=== PATIENT | female | born 1990 | race Caucasian/White ===

== ENCOUNTER 2017-07-06 18:14 | Inpatient (IN) | payer BC ==
[2017-07-06] MEDS ORDERED: Carboprost Tromethamine 250 MCG/1 ML Amp IM PRN (18:38)
[2017-07-06] MEDS ORDERED: Lidocaine 1% 30 ML SDV INJECT PRN (18:38)
[2017-07-06] MEDS ORDERED: Tranexamic Acid 1,000 MG in Sodium Chloride 0.9% 100 ML IV PRN (18:38)
[2017-07-06] MEDS ORDERED: Methylergonovine 0.2 MG/1 ML Amp IM PRN (18:38)
[2017-07-06] MEDS ORDERED: Lactated Ringers 500 ML IV ONE (18:38)
[2017-07-06] MEDS ORDERED: Acetaminophen 325 MG Tab PO PRN (18:38)
[2017-07-06] MEDS ORDERED: Misoprostol 400 MCG (4 X 100 MCG TAB) RECTAL PRN (18:38)
[2017-07-06] MEDS ORDERED: Sodium Chloride 0.9% 10 ML Syringe FLUSH PRN (18:38)
[2017-07-06] MEDS ORDERED: Ondansetron 4 MG/2 ML SDV IV PRN (18:38)
[2017-07-06] MEDS ORDERED: Oxytocin/Normal Saline 30 UNIT/500 ML BAG IV SCH (18:45)
[2017-07-06] MEDS: Lactated Ringers 1,000 ML IV SCH (19:20)
[2017-07-06] MEDS ORDERED: Nalbuphine 20 MG/1 ML Amp IM ONE (23:51)
--- NOTE | 2017-07-07 01:27 | HP ---
CHIEF COMPLAINT: Spontaneous rupture of membranes with occasional contractions. HISTORY OF PRESENT ILLNESS: A 27-year-old, 1, para 0, currently at 37 weeks 6 days' gestation based on last menstrual period, presents to Labor and Delivery reporting spontaneous rupture of membranes at 1600 hours today with vaginal leaking, consistent of clear fluid. She has had occasional contractions from that time until her time at presentation to Labor and Delivery at approximately 1830 hours. She states the contraction pains are more of a low back pain. Still leakage of fluid, states that she has changed her pads twice today. No vaginal bleeding. No upper abdominal pain. No headaches. No vision changes. No bleeding or spotting. She states that she has some heartburn-type pain. The patient has gestational diabetes, failing her 1-hour glucose tolerance test with a blood sugar of 221. She has been managing her GDM with glyburide. movement has been good overall today. HISTORY: The patient has had consistent care with Dr. Amarjit Casper. Blood type is A negative. She received her RhoGAM at 28 weeks. She is rubella immune. GBS negative. Syphilis serology nonreactive. Hepatitis B, HIV, TSH, hepatitis C, and wet prep were all negative. Impaired glucose tolerance with 1-hour glucose tolerance test of 221, gestational diabetes, managed with glyburide. PAST MEDICAL HISTORY: Negative except for this and its gestational diabetes. PAST SURGICAL HISTORY: Perry teeth extraction. FAMILY HISTORY: Father is adopted, no known history on his side. Father is reported to be alive and well. Mother reported to be alive and well, negative medical history on her side. The patient has a half brother (same father), who lived for 1 month with defects of no eyes and no voicebox. Subsequent pregnancies were without defect, genetic workup was inconclusive. SOCIAL HISTORY: The patient is to , Jori. They live in [place], [place]. 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 CURRENT MEDICATIONS: 1. Glyburide with 2.5 mg in the morning, 5 mg at noon, 5 mg in the evening. 2. vitamins. 3. Tylenol as needed. EXPOSURE MEDICATIONS: Glyburide. ALLERGIES: Seasonal. REVIEW OF SYSTEMS: No headache, blurry vision, chest pain, shortness of breath, fever, chills, nausea, vomiting, diarrhea, or constipation. The patient has mild swelling in the legs and heartburn. No skin rash. No new symptoms reported. OBJECTIVE: Vital signs: Admission vitals currently pending. HEENT: Atraumatic, normocephalic. Mucosal membranes moist. Pupils PERRLA. Neck: Supple. No adenopathy. Heart: Regular without any murmur. Lungs: Clear to auscultation bilaterally. Abdomen: Gravid. Nontender. Bowel sounds auscultated on superior quadrants. Baseline heart rate in the 130s with accelerations noted. See Dr. Amarjit Casper's note Cervix: Cervix is 3 cm dilated, 75% effaced, with ruptured membranes. LABORATORY DATA: Current admission laboratory data pending. ASSESSMENT: 1. Intrauterine at 37 and 6/7 weeks' gestation, based on last menstrual period and ultrasound at 9-1/2 weeks. 2. Premature rupture of membranes 3. Gestational diabetes, managed with glyburide, with admission glucose of 76. 4. Group B streptococcus negative, blood type A negative with RhoGAM admitted at 28 weeks, and rubella immune. 5. Infertility, treated with Clomid and provera for one cycle prior to 6. 1, para 0. PLAN: At this time, the patient has been admitted to Labor and Delivery for established labor. Anticipate that this will be a vaginal delivery. We will use Pitocin to augment her contractions. The patient is requesting intrathecal for pain management when the time comes, but she is agreeable to any form of pain control at this point. The patient understands that things may change and she may need alternative delivery such as section. Her and her 's questions have been answered. seen and agreed-ROXI. [facility] /[id number] ELIANE
[2017-07-07] MEDS: Lactated Ringers 1,000 ML IV SCH ×4 (01:29→18:10)
[2017-07-07] MEDS ORDERED: fentaNYL 100 MCG/2 ML SDV ONE (01:31)
[2017-07-07] MEDS ORDERED: Bupivacaine 0.75%/D5W 2 ML Amp ONE (01:31)
[2017-07-07] MEDS ORDERED: EPINEPHrine 1 MG/ML SDV ONE (01:32)
--- NOTE | 2017-07-07 02:34 | PCM.PRNOTE ---
- Free Text/Narrative Note: Requested to provide analgesia to full term patient in severe pain. Upon entering the room, patient is supine in bed complaining of severe abdominal/ pelvic pain and discomfort. Procedure was discussed with patient including adverse outcomes and expectations. Pt consented to analgesia, SAB/IT. Pt placed into a sitting position. Landmarks for SAB/IT were identified and marked. Hands were washed and appropriate PPE was applied. Back was prepped with betadine x3. A sterile, transparent, fenestrated drape was applied. Excess betadine was removed. Using 3 mL of a 1% lidocaine solution, a skin wheel was placed at the L3/L4 interspace. A 24 ga (4 inch) Pencan spinal needle was inserted until positive for CSF. Negative for heme or paresthesias. Injected fentanyl 20 mcg, sufentanil 10 mcg, and 9.75 mg of a 0.75% bupivacaine solution with an epi wash. Pt was placed left lateral position for approximately 20 minutes. There were zero complications or adverse outcomes. Will continue to monitor.
[2017-07-07] MEDS ORDERED: Tranexamic Acid 1,000 MG in Sodium Chloride 0.9% 100 ML IV PRN (04:17)
[2017-07-07] MEDS ORDERED: ceFAZolin 2 GM in Premix Bag 1 BAG IV ONE (04:17)
[2017-07-07] MEDS ORDERED: Acetaminophen/oxyCODONE 325-5 MG Tab PO PRN (04:17)
[2017-07-07] MEDS ORDERED: Naloxone 2 MG/2 ML Syringe IVPUSH PRN (04:17)
[2017-07-07] MEDS ORDERED: Citric Acid/Sodium Citrate Solution 30 ML Cup PO ONE (04:17)
[2017-07-07] MEDS ORDERED: diphenhydrAMINE 50 MG/ML SDV IVPUSH PRN (04:17)
[2017-07-07] MEDS ORDERED: ePHEDrine 50 MG/ML SDV IVPUSH PRN (04:17)
[2017-07-07] MEDS ORDERED: Oxytocin/Normal Saline 30 UNIT/500 ML BAG IV SCH (04:30)
[2017-07-07] MEDS ORDERED: Lactated Ringers 1,000 ML IV SCH (04:30)
[2017-07-07] MEDS: Morphine PF 30 MG/30 ML PCA Vial IV PRN ×2 (06:41→12:04)
--- NOTE | 2017-07-07 09:52 | OR ---
DATE: 07/07/2017 PREOPERATIVE DIAGNOSES: 1. Intrauterine 38 weeks, confirmed by 9 and 2/7 week ultrasound. 2. Excessive vaginal bleeding. 3. Nonreassuring status. 4. Premature rupture of membranes requiring initial Pitocin augmentation. 5. Gestational diabetes mellitus, requiring glyburide during the . Glucose-76 upon admit and controlled. 6. Group B Streptococcus negative. 7. Rh negative. 8. Infertility requiring Clomid and Provera x1 cycle for this . 9. G1, P0. POSTOPERATIVE DIAGNOSES: 1. Intrauterine 38 weeks, confirmed by 9 and 2/7 week ultrasound- delivered. 2. Excessive vaginal bleeding. 3. Nonreassuring status. 4. Premature rupture of membranes requiring initial Pitocin augmentation. 5. Gestational diabetes mellitus, requiring glyburide during the . Glucose-76 upon admit and controlled. 6. Group B Streptococcus negative. 7. Rh negative. 8. Infertility requiring Clomid and Provera x1 cycle for this . 9. G1, P0. 10.Placental abruption, diagnosed with old blood clot behind the placenta. PROCEDURE PERFORMED: On 07/06/2017, NST and Pitocin augmentation. On 07/07/2017, continued Pitocin augmentation followed by IUPC, and then subsequent primary low transverse with 2-layer uterine closure. CHIEF METEOROLOGIST: 1. Claudia Estevez MD. 2. Nallely Hodge MS-III. ANESTHESIA: General due to recent intrathecal prior to the procedure. ESTIMATED BLOOD LOSS: 700 mL. IV FLUIDS: 1100 mL. URINE OUTPUT: 200 mL and yellow. START: 0504 hours. UTERINE INCISION: 0505 hours. DELIVERY: 0506 hours. STOPPED: 0531 hours. FINDINGS: Male. scores and weight pending. DESCRIPTION OF PROCEDURE IN DETAIL: After proper consent was obtained, the patient was brought to the operating room, where Gordon was placed in preop under sterile conditions and abdomen was prepped and draped in normal sterile fashion with patient placed in supine position with left lateral tilt. General anesthesia was then introduced. Skin incision was then made over lower abdomen in transverse Pfannenstiel-type fashion. This was carried down to the fascia and scored in the midline. Subcutaneous tissue was raked laterally with blunt technique and fascial incision was extended superiorly and inferiorly and laterally with blunt technique. Rectus muscles were in the midline with blunt technique. Abdominal cavity was then entered in blunt technique. Incision was extended superiorly and inferiorly with blunt technique. Sen O large retractor was then introduced and used. Vesicouterine peritoneum was identified and incised in transverse fashion with Metzenbaum scissors, and bladder flap was made digitally. A curvilinear incision was made on the lower uterine segment at 0505 hours. Uterus was entered sharply. Clear fluid returned. The uterine incision was then extended in transverse fashion using blunt technique. vertex was then delivered up through the pelvis and into the incision, followed by rest of the infant with some difficulty with shoulders being delivered in transverse presentation/fashion. Rest of the infant was delivered. Mouth and nares were suctioned. Cord was doubly clamped and cut and the infant was brought over to team for resuscitation. Then, approximately 10 mL of cord blood was obtained for labs. Placenta was then delivered with gentle cord traction and fundal massage and was noted to have approximately a golf ball size clot behind the placenta with some stringy old blood clot noted with clearing of the uterine cavity. Uterine cavity was then cleared of all blood clots and debris with lap sponge. Cortes clamps were used to grasp the uterine incision, and this was closed in a running locked fashion and tied at lateral margins with 1-0 Vicryl. Second imbricating layer was applied using 1-0 Vicryl and tied at lateral margins. Persistent bleeding was noted on left lateral portion of the incision. A figure- of-nine stitch was placed over this area and hemostasis was reassured. First inspection of the uterine incision revealed hemostasis. Sen O retractor was then removed and paracolic gutters were then cleared of all blood clots and debris with lap sponge. Anterior cul-de-sac was then irrigated copiously, and all blood clots and debris removed. Second and final inspection of the uterine incision and anterior cul-de-sac revealed hemostasis. Rectus muscles were then reapproximated in midline with [id number] stitch using 1-0 Vicryl. Subfascial tissue was found to be hemostatic. Fascia was closed in a running fashion and tied at lateral margin with 0 looped PDS. Subcutaneous tissue was irrigated copiously. Hemostasis reassured. Skin was reapproximated with medium donna. Sterile Aquacel dressing was applied. Uterine fundus was firm and massaged at the conclusion of the case -1 below umbilicus. No immediate complications were noted. Sponge, lap, needle counts were correct. The patient received 2 g Ancef preoperatively, Pitocin per protocol, and will receive Toradol at the conclusion of the case for pain control. During uterine incision repair due to the history of the abruption, tranexamic acid was called for and given 1 g. Please see MACARONI MAKER notes. Mother and are currently stable time of dictation. MODL /[id number]
--- NOTE | 2017-07-07 09:58 | PN ---
DATE: 07/07/2017 SUBJECTIVE: The patient is comfortable, status post intrathecal. She did receive some Nubain earlier. Pitocin was stopped after the intrathecal with continued monitoring of the fetus. OBJECTIVE: Last blood pressure 122/55. heart tones in 135 to 140 range. Acceleration noted with vaginal exam. Tocometer was unable to read contractions with patient lying on her left side with oxygen on. Vaginal exam reveals her to be 7 cm, 90% effaced, 0 to +1 station vertex suspected with some bloody show. IUPC placed after discussion with the patient. ASSESSMENT: Intrauterine now at 38 weeks, confirmed by 9 and 2/7 week ultrasound with premature rupture membranes, requiring Pitocin augmentation, with gestational diabetes mellitus complicating this , requiring glyburide with glucose of 76 upon admit, and GBS negative, and Rh negative, G1, P0, treated for infertility with Clomid and Provera x1 cycle prior to becoming . PLAN: Pitocin has been has been stopped. We will follow heart tones closely. IUPC has been placed to determine strength of contractions. May consider resuming Pitocin once heart tones are more reassuring. Otherwise, we will continue to follow closely at this point in time. [facility] /[id number]
--- NOTE | 2017-07-07 10:28 | PN ---
DATE: 07/07/2017 SUBJECTIVE: The patient is feeling comfortable status post intrathecal. Concerns per nurse with variable decelerations and status are listed. OBJECTIVE: heart tones right now are in the 140s to 150s baseline. I can see 1 acceleration noted with vaginal exam. Tocometer reveals contractions every 1.5 to 3 minutes. Pitocin has been stopped due to heart tone concerns. Vaginal exam reveals her to be 6 to 7 cm, 75% to 85% effaced, 0 station, vertex suspected, and essentially unchanged from evaluation approximately 2 hours prior. ASSESSMENT AND PLAN: Intrauterine at 38 weeks, confirmed by 9 and 2/7 weeks' ultrasound, complicated by premature rupture of membranes. Initially receiving Pitocin augmentation that had to be stopped after intrathecal due to concerns with heart tones with the patient having gestational diabetes mellitus, requiring glyburide with glucose controlled at 76 upon admit in a GBS negative, Rh negative, G1, P0. The patient now has concerns with nonreassuring status with what appears to be a category 2 strip that has persisted despite using oxygen, IV fluids, repositioning. I did discuss with the patient concerns with the heart tones as well as her lack of cervical change, and due to the concerns with status, I have recommend that we proceed with primary low transverse . I did discuss with her and her male partner risks, benefits, alternatives, and complications of including, but not limited to, infection, bleeding, damage to internal organs such as bowel, bladder, tubes, uterus, ovaries, sometimes fetus rarely needing a blood transfusion or further surgery, and rarer maternal or . She understands and agrees and wishes to proceed. Verbal and written consent were obtained. Questions were answered. We will proceed to the operating room as soon as crew is ready and available. [facility] /[id number]
--- NOTE | 2017-07-07 11:01 | PN ---
DATE: 07/07/2017 SUBJECTIVE: The patient is comfortable, status post intrathecal. Has no questions, getting ready to be wheeled/transferred down to the OR. OBJECTIVE: Vaginal exam done, essentially unchanged, around 7 cm, unchanged in terms of effacement, 0 station, vertex suspected, but increased vaginal bleeding is noted. ASSESSMENT/PLAN: Increased vaginal bleeding with no cervical change with history of nonreassuring status. We will proceed to the OR and follow clinically and closely. Of note, there was an acceleration around the time of vaginal exam. The patient's questions have been answered. We are proceeding to the OR at the current time of dictation. [facility] /[id number]
--- NOTE | 2017-07-07 11:07 | OBOUT ---
DATE: 07/06/2017 DATE AND TIME OF NST: Date: 07/06/2017. Time: 1826 hours to 1846 hours. REASON FOR NST: 1. Intrauterine 37 and 6/7 weeks, confirmed with 9 and 2/7 week ultrasound. 2. Premature rupture of membranes. 3. Gestational diabetes mellitus, requiring glyburide, glucose 76 upon admit. 4. Group B streptococcus negative. 5. Rh negative, RhoGAM given appropriately in the . 6. Infertility, requiring Clomid and Provera x1 cycle for this . 7. G1, P0. NST INTERPRETATION: During this time period, heart tone baseline is approximately 145 and there are at least two 15 x 15 beats per minute accelerations, making this strip reactive. . It is also noted to be reassuring. Tocometer reveals potential of 3 to 4 contractions, none felt by patient. Blood pressure 127/72, heart rate 98. The patient feels afebrile. Vaginal exam reveals her to be 3.5 cm, 75% effaced, -1 station, vertex suspected. ASSESSMENT AND PLAN: 1. Nonstress test, reactive and reassuring. 2. Tocometer with contractions. PLAN: Spontaneous rupture of membranes around 4 p.m., or earlier, approximately 3 hours prior to this NST and admission to the hospital, we will start Pitocin augmentation. In addition, we will continue to follow clinically and closely. Blood sugar is under control at this point in time. We will stop her glyburide at this point in time and we will continue to follow clinically and closely. Carbohydrate appropriate diet has been ordered. In addition, history and physical done in conjunction with Nallely Hodge MS-III, for this records were called for, reviewed, and supplemented by patient's history, as well as review of systems fully reviewed and felt to be only contributory for her documentations. Plan as above, we will start Pitocin when we can and follow clinically and closely. [facility] /[id number]
[2017-07-07] MEDS: Ketorolac 30 MG/ML SDV IVPUSH SCH ×3 (11:47→23:32)
[2017-07-07] MEDS: Simethicone 80 MG Tab.Chew PO SCH ×4 (11:48→23:33)
[2017-07-07] MEDS: Docusate Sodium 100 MG Cap PO PRN (23:33)
[2017-07-08] MEDS: Lactated Ringers 1,000 ML IV SCH (01:23)
[2017-07-08] MEDS: Ibuprofen 800 MG Tab PO PRN ×2 (07:42→17:28)
[2017-07-08] MEDS: Docusate Sodium 100 MG Cap PO PRN ×2 (07:42→21:32)
[2017-07-08] MEDS: Acetaminophen/oxyCODONE 325-5 MG Tab PO PRN ×4 (07:43→21:33)
[2017-07-08] MEDS: Simethicone 80 MG Tab.Chew PO SCH ×4 (08:37→21:32)
--- NOTE | 2017-07-08 11:32 | PN ---
DATE: 07/08/2017 SUBJECTIVE: The patient is sitting at the edge of the bed in her room, she is "getting the strength to go to the bathroom." The patient has been able to get up to the bathroom with help the night before. She attributes her pain to the catheter. She describes this pain as "more of a burning achy pain." The Aquacel dressing has not shown an increase in the bleeding and shadowing on the right side. She has no fever, no chills. Denies headache, nausea, back pain, or weakness in her legs. Denies abdominal pain. She is tolerating a normal diet. Passing gas, has not had a bowel movement. without complications. OBJECTIVE: Vital Signs: Temperature 98.4, pulse is 79, blood pressure 120/67, respiratory rate of 16, 100% oxygen saturation on room air. HEENT: Atraumatic, normocephalic. Globes appear normal. Neck: Supple. Trachea midline. Lungs: Clear to auscultation bilaterally. No crackles or wheezing. Heart: Regular rate and rhythm. No murmur. Abdomen: Uterus is firm at the umbilicus. There is an Aquacel dressing over her lower abdominal incision. Due to patient's discomfort and pannus while in sitting position, did not visualize the full Aquacel dressing. Extremities: Mild edema in legs, nonpitting. Pulses palpable in the periphery, radial and dorsalis pedis. LABORATORY DATA: Hemoglobin 9.9, platelets 288. ASSESSMENT: 1. Postop day #1 of primary section of a 38 week 0 day gestation confirmed by 9-2/7 weeks' ultrasound. 2. Placental abruption diagnosed with old blood clot behind the placenta. 3. Gestational diabetes mellitus requiring glyburide. 4. Rh negative with Rh positive infant. 5. Infertility requiring Clomid and Provera x1 cycle for this . 6. 1, para 1. PLAN: Continue hospitalization for recovery from section. We will be starting iron and vitamins to help improve patient's hemoglobin. Questions answered about the schedule for discharge and followup visits. seen and agreed with med student-ROXI MODL /[id number] ELIANE
[2017-07-08] MEDS ORDERED: Ketorolac 30 MG/ML SDV IVPUSH ONE (15:55)
[2017-07-08] MEDS ORDERED: Dexamethasone 4 MG/ML SDV IV ONE (15:55)
[2017-07-08] MEDS ORDERED: Succinylcholine 200 MG/10 ML MDV IV ONE (15:55)
[2017-07-08] MEDS ORDERED: Ondansetron 4 MG/2 ML SDV IV ONE (15:55)
[2017-07-08] MEDS ORDERED: Tranexamic Acid 1,000 MG in Sodium Chloride 0.9% 100 ML IV ONE (15:55)
[2017-07-08] MEDS ORDERED: Rocuronium 50 MG/5 ML Vial IV ONE (15:55)
[2017-07-08] MEDS ORDERED: Propofol 200 MG/20 ML SDV IV ONE (15:55)
[2017-07-08] MEDS ORDERED: Glycopyrrolate 0.2 MG/ML 2 ML SDV IV ONE (15:55)
[2017-07-08] MEDS ORDERED: Neostigmine Methylsulfate 10 MG/10 ML MDV IV ONE (15:55)
[2017-07-08] MEDS ORDERED: EPINEPHrine 1 MG/ML SDV ONE (16:00)
[2017-07-08] MEDS ORDERED: Bupivacaine 0.75%/D5W 2 ML Amp ONE (16:00)
[2017-07-08] MEDS ORDERED: fentaNYL 100 MCG/2 ML SDV ITHECAL ONE (16:00)
[2017-07-08] MEDS ORDERED: fentaNYL 100 MCG/2 ML SDV IV ONE (16:24)
[2017-07-09] MEDS: Acetaminophen/oxyCODONE 325-5 MG Tab PO PRN ×6 (01:12→22:17)
[2017-07-09] MEDS: Ibuprofen 800 MG Tab PO PRN ×3 (01:13→17:59)
[2017-07-09] MEDS: Docusate Sodium 100 MG Cap PO PRN ×2 (09:48→22:18)
[2017-07-09] MEDS: Prenatal Multivitamin with Calcium/Folic Acid/Iron Tab PO SCH (09:48)
[2017-07-09] MEDS: Simethicone 80 MG Tab.Chew PO SCH ×4 (09:48→22:16)
[2017-07-09] MEDS: Ferrous Sulfate 325 MG Tab PO SCH (09:48)
--- NOTE | 2017-07-09 11:15 | PN ---
DATE: 07/09/2017 Postoperative day #2. SUBJECTIVE: The patient is tolerating p.o., ambulating, urinating, and passing flatus. Notes improvement in her swelling from yesterday as well as pain and feels much better. OBJECTIVE: Vital Signs: Temperature 98.7, heart rate 61, blood pressure 116/67, and respiratory rate 16. Lungs: Clear to auscultation bilaterally. Heart: S1 and S2. Regular rate and rhythm. Pelvic: Firm uterus, +1 above umbilicus. Extremities: Trace to 1+ pitting edema to mid tibia. No calf pain. RhoGAM was given yesterday as baby's blood type was positive. LABORATORY DATA: Hemoglobin yesterday was 9.9 with platelets of 288. ASSESSMENT AND PLAN: 1. Postoperative day #2, status post primary low transverse section with 2-layer uterine closure. The patient appears to be doing well. We will continue to follow clinically and closely. 2. Anemia of acute blood loss. Hemoglobin dropping down to the level as described as above. Iron has been started. We will recheck a CBC tomorrow and follow clinically and closely. Possible discharge tomorrow. [facility] /[id number]
[2017-07-10] MEDS: Ibuprofen 800 MG Tab PO PRN (02:10)
[2017-07-10] MEDS: Acetaminophen/oxyCODONE 325-5 MG Tab PO PRN ×2 (02:11→08:41)
[2017-07-10] MEDS: Prenatal Multivitamin with Calcium/Folic Acid/Iron Tab PO SCH (08:38)
[2017-07-10] MEDS: Docusate Sodium 100 MG Cap PO PRN (08:39)
[2017-07-10] MEDS: Ferrous Sulfate 325 MG Tab PO SCH (08:39)
[2017-07-10] MEDS: Simethicone 80 MG Tab.Chew PO SCH (08:43)
--- NOTE | 2017-07-13 09:11 | DISCH ---
Patient admitted on 07/06/2017 DOS: 07/10/2017 ADMIT DIAGNOSES: 1. Intrauterine at 37 and 6/7 weeks, confirmed with 9 and 2/7 week ultrasound. 2. Premature rupture of membranes. 3. Gestational diabetes mellitus, requiring glyburide with glucose-76 upon admit. 4. Group B streptococcus negative. 5. Rh negative. RhoGAM given appropriately. 6. Infertility, requiring Clomid and Provera x1 cycle for this . 7. 1, para 0. POSTOPERATIVE DIAGNOSES: 1. Intrauterine at 38 weeks, confirmed with 9 and 2/7 week ultrasound, delivered via primary low transverse section with 2 layer uterine closure. 2. Premature rupture of membranes. 3. Gestational diabetes mellitus, requiring glyburide with glucose-76 upon admit. 4. Group B streptococcus negative. 5. Rh negative. RhoGAM given appropriately. 6. Infertility, requiring Clomid and Provera x1 cycle for this . 7. 1, para 0. 8. Excessive vaginal bleeding. 9. Abruption noted with delivery. PROCEDURE PERFORMED: On 07/06 NST and Pitocin and then on 07/07 IUPC, Pitocin, and then subsequent primary low transverse with 2 layer uterine closure. Procedure performed by Amarjit Casper MD. HISTORY OF PRESENT ILLNESS: Please see H and P. SUMMARY OF HOSPITAL COURSE: The patient was admitted on the above date with the above diagnoses and underwent Pitocin augmentation as she had premature rupture of membranes. She also required an IUPC to monitor contractions and then subsequently had some increased vaginal bleeding with concerns with nonreassuring status. She was taken to the operating room, and as intrathecal was performed before the , general anesthesia was used. This was with an EBL of 700 mL with findings consistent with an abruption, yielding a male with scores of 5 and 9, weighing 6 pounds 15 ounces. Please see operative note for further details. Postoperative day #1 and #2, please see progress note. Postoperative day #3, date of discharge, the patient tolerating p.o., ambulating, urinating, passing flatus, and requesting discharge. PHYSICAL EXAMINATION: Vital Signs: Last set of vitals are updated and listed in the chart. Temperature 98.8, heart rate 79, blood pressure 118/59, respiratory rate 16. Lungs: Clear to auscultation bilaterally. Heart: S1 and S2. Regular rate and rhythm. Abdomen: Firm uterus at -1 below umbilicus. Aquacel dressing has minimal tracing on the right, unchanged from yesterday. Extremities: 1+ pitting edema to the proximal tibia. No calf pain. LABORATORY DATA: White cell count 8.1, hemoglobin 10, platelets 340. CONDITION ON DISCHARGE COMPARED TO CONDITION ON ADMISSION: Improved. RETURN INSTRUCTIONS: 1. Diet as tolerated. 2. Activity: No lifting more than 20 pounds. No sit-ups, straining, and pelvic rest for the next 6 weeks with immediate return to fertility discussed with the patient. 3. Reasons to return or go to the emergency room were discussed with the patient in detail including, but not limited to, temperature greater than 100.4, foul-smelling discharge, red hot tender breasts, or increased vaginal bleeding. DISCHARGE MEDICATIONS: 1. [id number] ibuprofen or Tylenol for pain. 2. Percocet 5/325 mg one to two q.6 hours p.r.n., #30, no refills. Discussed the use of this medications, adverse and wanted effects, as well as precautions with driving. FOLLOWUP: Follow up on 07/13/2017, for staple removal. I did discuss with her in the interim reasons to return or go to the emergency room in regard to her infant as well. [facility] /[id number]
== END 2017-07-10 10:35 | disposition home or self-care (01) | DRG 540 ==
LOC: DL.OBCHECK 18:14 → DL.OB 18:40 → OBSVTOIN 07-07 05:06
PROVIDERS: ADMIT Family Medicine; ATTEND Family Medicine
PROC: 10D00Z1 Extraction of Products of Conception, Low, Open Approach (ICD-10-PCS; principal; 2017-07-07)
PROC: 6A550ZT Pheresis of Cord Blood Stem Cells, Single (ICD-10-PCS; 2017-07-07)
PROC: 10H07YZ Insertion of Other Device into Products of Conception, Via Natural or Artificial Opening (ICD-10-PCS; 2017-07-07)
PROC: 00HU33Z Insertion of Infusion Device into Spinal Canal, Percutaneous Approach (ICD-10-PCS; 2017-07-07)
PROC: 3E0R3BZ Introduction of Anesthetic Agent into Spinal Canal, Percutaneous Approach (ICD-10-PCS; 2017-07-07)
PROC: 3E0234Z Introduction of Serum, Toxoid and Vaccine into Muscle, Percutaneous Approach (ICD-10-PCS; 2017-07-08)
DX: O42.013 Preterm premature rupture of membranes, onset of labor within 24 hours of rupture, third trimester (principal); O45.93 Premature separation of placenta, unspecified, third trimester; O24.425 Gestational diabetes mellitus in childbirth, controlled by oral hypoglycemic drugs; O76 Abnormality in fetal heart rate and rhythm complicating labor and delivery; O32.2XX0 Maternal care for transverse and oblique lie, not applicable or unspecified; Z3A.37 37 weeks gestation of pregnancy; Z37.0 Single live birth; Z28.21 Immunization not carried out because of patient refusal; O26.893 Other specified pregnancy related conditions, third trimester; Z67.11 Type A blood, Rh negative
CPT/HCPCS: 36415; 36430; 82962; 85025; 85027; 85461; 86850; 86900; 86901; A9270-GY; J0171; J0330; J0690; J1100; J1885; J2274; J2300; J2405; J2590; J2704; J2710; J2790; J3010; J3490; J7050; J7120